=== PATIENT | male | born 1980 | race Two or more races ===

== ENCOUNTER 2024-05-06 13:50 | Emergency (ER) | payer MEDICARE, MEDICAID ==
[~2024-05-06] VITALS: Ht 190.5 cm; Wt 119.3 kg
[2024-05-06 14:07] VITALS: BP 153/87; TEMP 97.9; O2SAT 99
[2024-05-06] MEDS ORDERED: CEPH500C2 PO (14:27)
[2024-05-06] MEDS ORDERED: CEPHALEXIN MONOHYDRATE 500 MG CAPSULE PO ONE (14:34)
[2024-05-06] MEDS: CEPHALEXIN MONOHYDRATE 500 MG CAPSULE PO ONE (14:35)
[2024-05-06] MEDS ORDERED: IBUPROFEN 600 MG TABLET ONE (14:36)
[2024-05-06] MEDS: IBUPROFEN 600 MG TABLET PO ONE (15:15)
== END 2024-05-06 15:30 | disposition home or self-care (01) ==
LOC: ER 14:24
DX: S51.011D Laceration without foreign body of right elbow, subsequent encounter (principal); L03.113 Cellulitis of right upper limb; I10 Essential (primary) hypertension; Z48.00 Encounter for change or removal of nonsurgical wound dressing; X58.XXXD Exposure to other specified factors, subsequent encounter